=== PATIENT | female | born 1995 | race Two or more races ===

== ENCOUNTER 2021-08-22 15:00 | Outpatient (CLI) | payer OTHER | END 2021-08-22 15:30 | disposition home or self-care (01) | LOC: PPH VACUNA 15:00 | PROVIDERS: ATTEND Emergency Medicine Pediatric Emergency Medicine | DX: Z23 Encounter for immunization (principal) ==

== ENCOUNTER 2024-07-19 11:12 | Outpatient (CLI) | payer OTHER | END 2024-07-19 11:13 | disposition home or self-care (01) | LOC: PRENATAL 11:12 | PROVIDERS: ATTEND Obstetrics & Gynecology Maternal & Fetal Medicine | DX: Z76.1 Encounter for health supervision and care of foundling (principal) ==

== ENCOUNTER 2024-09-15 15:43 | Outpatient (CLI) | payer OTHER | END 2024-09-15 15:44 | disposition home or self-care (01) | LOC: PRENATAL 15:43 | PROVIDERS: ATTEND Obstetrics & Gynecology Maternal & Fetal Medicine | DX: O44.00 Complete placenta previa NOS or without hemorrhage, unspecified trimester (principal); O99.280 Endocrine, nutritional and metabolic diseases complicating pregnancy, unspecified trimester; Z14.8 Genetic carrier of other disease; Z3A.20 20 weeks gestation of pregnancy ==

== ENCOUNTER 2024-11-27 15:42 | Emergency (ER) | payer OTHER ==
[~2024-11-27] VITALS: Ht 157.5 cm; Wt 83.9 kg
[2024-11-27] MEDS ORDERED: SYNTHROID100 MCG PO (15:59)
[2024-11-27] MEDS ORDERED: PEPCID AC20 MG (16:00)
[2024-11-27] MEDS ORDERED: NASAL MIST126 ML (16:00)
[2024-11-27] MEDS ORDERED: 0.9 % SODIUM CHLORIDE 1,000 ML IV STA (16:39)
[2024-11-27] MEDS ORDERED: ONDANSETRON HCL 2 MG/ML VIAL IV STA (16:40)
[2024-11-27] MEDS ORDERED: FAMOTIDINE/PF 20 MG/2 ML VIAL IV ONE (16:45)
[2024-11-27] MEDS ORDERED: FAMOTIDINE/PF 20 MG/2 ML VIAL ONE (16:51)
[2024-11-27] MEDS ORDERED: ONDANSETRON HCL 2 MG/ML VIAL ONE (16:51)
[2024-11-27 17:42] LABS: PH,URINE 6.5 (5.0-8.0); URINE APPEARANCE Cloudy; URINE BILIRRUBIN Negative (NEGATIVE); URINE BLOOD Negative; URINE COLOR Yellow; URINE GLUCOSE Negative (NEGATIVE); URINE LEUKOCYTE Moderate; URINE NITRATE Negative; URINE PROTEIN 30 (NEGATIVE)
[2024-11-27 17:44] LABS: HEMATOCRIT 38.3 % (36.0-45.00); HEMOGLOBIN 13.4 g/dL (12.0-15.00); MEAN CELL VOLUME 89.8 fL (80.00-100.00); MEAN CORPUSCULAR HEMOGLOBIN 31.3 pg (27.00-32.0); MEAN CORPUSCULAR HGB CONC 34.9 g/dl (32.0-36.0); PLATELET COUNT 211 K/uL (150-450); RED BLOOD COUNT 4.27 M/uL (4.00-6.00); RED CELL DISTRIBUTION WIDTH 13.7 % (11.5-14.5)
[2024-11-27 17:47] LABS: URINE EPITHELIAL CELLS 92.6 uL (0.0-38.8); URINE WBC 388.5 uL (0.0-23.2)
[2024-11-27 18:19] LABS: CALCIUM 8.7 mg/dL (8.5-10.1); CREATININE SERUM 0.48 mg/dL (0.55-1.02); GFR 152.9; POTASSIUM 3.68 mEq/L (3.5-5.1)
[2024-11-27 18:41] LABS: URINE BACTERIA > 9821.5 uL (0.0-1933); URINE CAST 0.29 uL (0.0-1.40); URINE KETONE 80 (NEGATIVE)
[2024-11-27 18:42] LABS: URINE MUCUS SCANT
== END 2024-11-27 20:33 | disposition home or self-care (01) ==
LOC: ER 15:44
PROVIDERS: Emergency Medicine
DX: O99.613 Diseases of the digestive system complicating pregnancy, third trimester (principal); Z3A.30 30 weeks gestation of pregnancy; R11.10 Vomiting, unspecified; E03.8 Other specified hypothyroidism; N39.0 Urinary tract infection, site not specified; O23.33 Infections of other parts of urinary tract in pregnancy, third trimester

== ENCOUNTER → 2024-12-08 15:05 | Outpatient (CLI) | payer OTHER ==
[~2024-12-08 15:05] MED LIST: NASAL MIST126 ML; PEPCID AC20 MG; SYNTHROID100 MCG PO
== END | disposition home or self-care (01) ==
LOC: PRENATAL 15:05
PROVIDERS: ATTEND Obstetrics & Gynecology Maternal & Fetal Medicine
DX: O26.849 Uterine size-date discrepancy, unspecified trimester (principal); O36.8199 Decreased fetal movements, unspecified trimester, other fetus; O99.280 Endocrine, nutritional and metabolic diseases complicating pregnancy, unspecified trimester; Z3A.32 32 weeks gestation of pregnancy

== ENCOUNTER 2025-01-20 00:30 | Inpatient (IN) | payer OTHER ==
[2025-01-20] VITALS (12 sets, daily range): BP systolic 101–127; BP diastolic 56–73; O2SAT 98
[~2025-01-20] VITALS: Ht 157.5 cm; Wt 87.1 kg
[2025-01-20] MEDS ORDERED: RINGERS SOLUTION,LACTATED 1,000 ML IV SCH (00:45)
[2025-01-20] MEDS ORDERED: PRENATAL TABLE1 EAC1 PO (00:59)
[2025-01-20 01:20] LABS: PH,URINE 6.5 (5.0-8.0); URINE APPEARANCE Clear; URINE BILIRRUBIN Negative (NEGATIVE); URINE BLOOD Negative; URINE COLOR Yellow; URINE GLUCOSE Negative (NEGATIVE); URINE KETONE Negative (NEGATIVE); URINE LEUKOCYTE Small; URINE NITRATE Negative; URINE PROTEIN Negative (NEGATIVE); URINE UROBILINOGEN 0.2 E.U./dl
[2025-01-20 01:21] LABS: HEMATOCRIT 37.2 % (36.0-45.00); HEMOGLOBIN 12.8 g/dL (12.0-15.00); MEAN CELL VOLUME 91.7 fL (80.00-100.00); MEAN CORPUSCULAR HEMOGLOBIN 31.5 pg (27.00-32.0); MEAN CORPUSCULAR HGB CONC 34.4 g/dl (32.0-36.0); PLATELET COUNT 188 K/uL (150-450); RED BLOOD COUNT 4.06 M/uL (4.00-6.00); RED CELL DISTRIBUTION WIDTH 13.6 % (11.5-14.5)
[2025-01-20 01:23] LABS: URINE BACTERIA 477.2 uL (0.0-1933); URINE EPITHELIAL CELLS 28.9 uL (0.0-38.8); URINE RBC 7.9 uL (0.0-20.8); URINE WBC 76.2 uL (0.0-23.2)
[2025-01-20 01:39] LABS: INR < 0.93; PARTIAL THROMBOPLASTIN TIME 26.2 SECONDS (22.0-34.0); PROTHROMBIN TIME 9.6 SECONDS (9.0-11.5)
[2025-01-20] MEDS ORDERED: MORPHINE SULFATE 4 MG/ML CARTRIDGE IV ONE (07:15)
[2025-01-20] MEDS ORDERED: OXYTOCIN 500 ML IV SCH (07:15)
[2025-01-20] MEDS ORDERED: ERYTHROMYCIN BASE OPHT 1GM EACH TUBE OP ONE ×2 (09:24→11:30)
[2025-01-20] MEDS ORDERED: OXYTOCIN 20 UNITS/1000ML RL PIGGYBAG IV ONE (09:25)
[2025-01-20] MEDS ORDERED: CHLORHEXIDINE GLUCONATE 120 ML BOTTLE TOP ONE ×2 (09:25→11:30)
[2025-01-20] MEDS ORDERED: LIDOCAINE HCL 1% 10ML VIAL ONE (09:25)
[2025-01-20] MEDS ORDERED: IBUprofen 400 MG TABLET PO PRN (11:00)
[2025-01-20] MEDS ORDERED: OXYTOCIN 1,000 ML IV SCH (11:30)
[2025-01-20 20:34] LABS: HEMATOCRIT 35.3 % (36.0-45.00); HEMOGLOBIN 12.1 g/dL (12.0-15.00); MEAN CELL VOLUME 91.3 fL (80.00-100.00); MEAN CORPUSCULAR HEMOGLOBIN 31.3 pg (27.00-32.0); MEAN CORPUSCULAR HGB CONC 34.2 g/dl (32.0-36.0); PLATELET COUNT 195 K/uL (150-450); RED BLOOD COUNT 3.86 M/uL (4.00-6.00); RED CELL DISTRIBUTION WIDTH 13.3 % (11.5-14.5)
[2025-01-21] MEDS ORDERED: LEVOTHYROXINE SODIUM 100 MCG TABLET PO SCH (06:00)
[2025-01-21] MEDS ORDERED: PNV,CALCIUM 72/IRON/FOLIC ACID 1 TAB TABLET PO SCH (09:00)
[2025-01-21 09:24] VITALS: BP 122/80
[2025-01-21 12:37] VITALS: BP 110/75
[2025-01-21 15:10] VITALS: BP 124/84
[2025-01-21 20:13] VITALS: BP 113/74
[2025-01-22] VITALS: BP 112/77
[2025-01-22 09:11] VITALS: BP 130/78
== END 2025-01-22 09:52 | disposition home or self-care (01) | DRG 807 ==
LOC: LDR 00:30 → OB/GYN 11:28
PROVIDERS: ADMIT Obstetrics & Gynecology; ATTEND Obstetrics & Gynecology
PROC: 10E0XZZ Delivery of Products of Conception, External Approach (ICD-10-PCS; principal; 2025-01-20)
PROC: 4A1HXCZ Monitoring of Products of Conception, Cardiac Rate, External Approach (ICD-10-PCS; 2025-01-20)
DX: O80 Encounter for full-term uncomplicated delivery (principal); Z37.0 Single live birth; Z3A.38 38 weeks gestation of pregnancy

== ENCOUNTER 2025-04-26 07:02 | Day surgery (SDC) | payer OTHER ==
[2025-04-24 12:46] LABS: PH,URINE 6.5 (5.0-8.0); URINE APPEARANCE Clear; URINE BILIRRUBIN Negative (NEGATIVE); URINE BLOOD Negative; URINE COLOR Yellow; URINE GLUCOSE Negative (NEGATIVE); URINE KETONE Negative (NEGATIVE); URINE LEUKOCYTE Moderate; URINE NITRATE Negative; URINE PROTEIN Negative (NEGATIVE); URINE UROBILINOGEN 0.2 E.U./dl
[2025-04-24 12:50] LABS: URINE BACTERIA 501.5 uL (0.0-1933); URINE EPITHELIAL CELLS 10.9 uL (0.0-38.8); URINE RBC 8.1 uL (0.0-20.8); URINE WBC 46.2 uL (0.0-23.2)
[~2025-04-26 07:02] MED LIST changes: +PRENATAL TABLE1 EAC1 PO
[2025-04-26] MEDS ORDERED: POVIDONE-IODINE 118 ML BOTT TOP ONE ×2 (09:00→09:02)
[2025-04-26] MEDS ORDERED: OxyCODONE HCL/APAP UD (PERCOCET) PO PRN (10:30)
[2025-04-26] MEDS ORDERED: MORPHINE SULFATE 4 MG/ML VIAL IV ONE ×2 (11:05→11:35)
== END 2025-04-26 13:20 | disposition home or self-care (01) ==
LOC: CIR.AMB 07:02
PROVIDERS: ATTEND Obstetrics & Gynecology
DX: Z30.2 Encounter for sterilization (principal)